=== PATIENT | male | born 1955 | race Caucasian/White ===

== ENCOUNTER 2016-07-26 14:42 | Emergency (ER) | payer OTHER | END 2016-07-26 15:51 | disposition home or self-care (01) | LOC: FER 14:42 | DX: L03.211 Cellulitis of face (principal); T14.8 Other injury of unspecified body region; I10 Essential (primary) hypertension; F17.210 Nicotine dependence, cigarettes, uncomplicated; Z88.5 Allergy status to narcotic agent; W57.XXXA Bitten or stung by nonvenomous insect and other nonvenomous arthropods, initial encounter | CPT/HCPCS: 99283 ==

== ENCOUNTER 2016-07-27 18:59 | Emergency (ER) | payer OTHER ==
[2016-07-27 20:06] LABS: BASOPHIL 0.3 % (0-2); EOSINOPHIL 3.5 % (0-5); HCT 46.6 % (42.0-52.0); HGB 15.9 g/dl (13.2-18.0); LYMPHOCYTE 21.9 % (15-48); MCH 33.5 pg (25.0-31.0); MCHC 34.1 g/dL (32.0-36.0); MCV 98.3 fL (78.0-100.0); MONOCYTE 7.2 % (0-12); MPV 10.1 fL (6.0-9.5); NEUTROPHIL 67.1 % (41-80); PLT 287 K/uL (150-400); RBC 4.74 M/uL (4.70-6.00); RDW 13.1 % (11.5-14.0); WBC 10.5 K/uL (4.0-10.5)
[2016-07-27 20:22] LABS: ALBUMIN 3.7 g/dL (3.4-4.8); BILIRUBIN - TOTAL 0.3 mg/dL (0.1-1.0); CREATININE 0.9 mg/dL (0.7-1.2); GLOBULIN (CALCULATION) 3.2 g/dL (2.2-4.2); POTASSIUM 3.8 mmol/L (3.5-5.1); TOTAL PROTEIN 6.9 g/dL (6.4-8.3)
[2016-07-27 21:26] LABS: BILIRUBIN NEGATIVE (NEGATIVE); BLOOD NEGATIVE Ery/uL (NEGATIVE); CLARITY CLEAR (CLEAR); COLOR YELLOW (YELLOW); GLUCOSE (U) NORMAL (NORMAL); KETONE (U) NEGATIVE (NEGATIVE); LEUKOCYTES NEGATIVE Leu/uL (NEGATIVE); NITRITE NEGATIVE (NEGATIVE); PROTEIN NEGATIVE (NEGATIVE); UROBILINOGEN 0.2 mg/dL (0.2-1.0); pH 6.5 (5.0-9.0)
[2016-07-27 21:36] LABS: AMPHETAMINES POSITIVE (NEGATIVE); BARBITURATES NEGATIVE (NEGATIVE); BENZODIAZEPINES NEGATIVE (NEGATIVE); COCAINE NEGATIVE (NEGATIVE); MARIJUANA (THC) NEGATIVE (NEGATIVE); METHADONE NEGATIVE (NEGATIVE); TRICYCLIC ANTIDEPRESSANT NEGATIVE (NEGATIVE)
== END 2016-07-27 22:32 | disposition home or self-care (01) ==
LOC: FER 18:59
PROVIDERS: Nurse Practitioner Family
DX: L98.9 Disorder of the skin and subcutaneous tissue, unspecified (principal); F15.10 Other stimulant abuse, uncomplicated; I10 Essential (primary) hypertension; F17.210 Nicotine dependence, cigarettes, uncomplicated; Z79.899 Other long term (current) drug therapy
CPT/HCPCS: 36415; 80053; 80305; 81003; 85025; 99283

== ENCOUNTER 2021-08-24 21:35 | Inpatient (IN) | payer OTHER ==
[~2021-08-24] VITALS: Ht 175.3 cm; Wt 94.1 kg
[~2021-08-24 21:35] MED LIST: ATARAX25 MG PO; BACTRIM DS TAB1 EACH PO; KEFLEX250 MG PO; MYCOLOG15 GM TOP
[2021-08-24 22:29] LABS: BASOPHIL 0.5 % (0-2); HGB 13.5 g/dl (13.2-18.0); LYMPHOCYTE 20.4 % (15-48); MCHC 34.6 g/dL (32.0-36.0); MCV 106.8 fL (78.0-100.0); MONOCYTE 6.2 % (0-12); MPV 11.5 fL (6.0-9.5); NEUTROPHIL 69.8 % (41-80); NRBC 0; PLT 160 K/uL (150-400); RBC 3.65 M/uL (4.70-6.00); RDW 13.6 % (11.5-14.0); WBC 14.2 K/uL (4.0-10.5)
[2021-08-24 22:40] LABS: ALBUMIN 2.4 g/dL (3.4-5.0); BILIRUBIN - TOTAL 0.6 mg/dL (0.2-1.0); BUN/CREAT RATIO (CALC) 12.4 RATIO; CREATININE 2.34 mg/dL (0.67-1.17); POTASSIUM 3.4 mmol/L (3.5-5.1); TOTAL PROTEIN 6.4 g/dL (6.4-8.2)
[2021-08-24 22:48] LABS: LACTIC ACID 4.4 mmol/L (0.4-1.9)
[2021-08-25 01:05] LABS: BILIRUBIN 1+ mg/dL (NEGATIVE); BLOOD 3+ Ery/uL (NEGATIVE); GLUCOSE (U) NORMAL (NORMAL); LEUKOCYTES NEGATIVE Leu/uL (NEGATIVE); NITRITE POSITIVE (NEGATIVE); PROTEIN 2+ mg/dL (NEGATIVE); SPECIFIC GRAVITY 1.025 (1.001-1.030); UROBILINOGEN 0.2 mg/dL (0.2-1.0)
[2021-08-25 01:09] LABS: ECSTASY (MDMA) NEGATIVE (NEGATIVE); MARIJUANA (THC) NEGATIVE (NEGATIVE); METHADONE NEGATIVE (NEGATIVE)
[2021-08-25 01:10] LABS: AMPHETAMINES NEGATIVE (NEGATIVE); BARBITURATES NEGATIVE (NEGATIVE); OPIATES POSITIVE (NEGATIVE); OXYCODONE POSITIVE (NEGATIVE)
[2021-08-25 01:12] LABS: CLARITY HAZY (CLEAR); COLOR AMBER (YELLOW)
[2021-08-25 01:20] LABS: URINARY WBC RARE
[2021-08-25 01:22] LABS: BACTERIA 1+
[2021-08-25 02:40] LABS: CORONAVIRUS 2019 SARS-COV-2 NEGATIVE (NEGATIVE); INFLUENZA A NAA NEGATIVE (NEGATIVE)
[2021-08-25] MEDS ORDERED: PROPRANOLOL HCL10 MG PO (03:36)
[2021-08-25] MEDS ORDERED: LISINOPRIL10 MG PO (03:37)
[2021-08-25] MEDS ORDERED: OMEPRAZOLE 20MG20 MG PO (03:37)
[2021-08-25 07:18] LABS: BASOPHIL 0.4 % (0-2); EOSINOPHIL 4.1 % (0-7); HCT 34.6 % (42.0-52.0); HGB 11.9 g/dl (13.2-18.0); LYMPHOCYTE 20.3 % (15-48); MCH 37.2 pg (25.0-31.0); MCHC 34.4 g/dL (32.0-36.0); MCV 108.1 fL (78.0-100.0); MONOCYTE 7.3 % (0-12); MPV 11.6 fL (6.0-9.5); NEUTROPHIL 67.2 % (41-80); PLT 103 K/uL (150-400); RDW 13.6 % (11.5-14.0); WBC 10.5 K/uL (4.0-10.5)
[2021-08-25 07:49] LABS: ALBUMIN 2.1 g/dL (3.4-5.0); ALKALINE PHOSHATASE 46 U/L (46-116); ALT 33 U/L (16-63); AST 31 U/L (15-37); BILIRUBIN - TOTAL 0.6 mg/dL (0.2-1.0); BUN 28 mg/dL (7-18); BUN/CREAT RATIO (CALC) 15.2 RATIO; C-REACTIVE PROTEIN >18.00 mg/dL (<=0.90); CHLORIDE 101 mmol/L (98-107); CHOLESTEROL 116 mg/dL (<200); CO2 (BICARBONATE) 30 mmol/L (21-32); CREATININE 1.84 mg/dL (0.67-1.17); GLOBULIN (CALCULATION) 3.5 g/dL; GLUCOSE 96 mg/dL (74-106); HDL 54 mg/dL (40-60); LDH 166 U/L (85-227); LDL - DIRECT 45 mg/dL (<100); MAGNESIUM 0.7 mg/dL (1.8-2.4); PHOSPHORUS 4.1 mg/dL (2.6-4.7); POTASSIUM 3.9 mmol/L (3.5-5.1); TOTAL PROTEIN 5.6 g/dL (6.4-8.2); TRIGLYCERIDES 64 mg/dL (<150)
[2021-08-25 07:53] LABS: EOSINOPHIL(M) 6 % (0-7); LYMPHOCYTE(M) 17 % (15-48); MONOCYTE(M) 4 % (0-12); NEUTROPHILS(M) 73 % (41-80); NRBC 0; TOTAL CELL COUNT 100
[2021-08-25 07:54] LABS: CKMB 1.3 ng/mL (0.0-3.6); PLATELET ESTIMATE NORMAL; PLATELET MORPHOLOGY NORMAL
--- NOTE | 2021-08-25 10:08 | NUR ---
DR. ORTIZ WAS CONTACTED BUT IS UNABLE TO COME SEE PATIENT IN HOSPITAL. WILL TRY TO CONTACT US WITH ANOTHER LOCAL ORAL SURGEON. DR. MOLINA IS CONTEMPLATING TRANSFER TO [facility] FOR THE ABCESS WELL. WILL CONTINUE TO FOLLOW.
[2021-08-25 11:46] LABS: CREATININE 1.47 mg/dL (0.67-1.17); POTASSIUM 3.9 mmol/L (3.5-5.1)
[2021-08-26 07:10] LABS: BASOPHIL 0.2 % (0-2); EOSINOPHIL 2.4 % (0-7); HCT 31.1 % (42.0-52.0); HGB 10.5 g/dl (13.2-18.0); LYMPHOCYTE 13.2 % (15-48); MCH 36.6 pg (25.0-31.0); MCHC 33.8 g/dL (32.0-36.0); MCV 108.4 fL (78.0-100.0); MONOCYTE 7.6 % (0-12); MPV 11.7 fL (6.0-9.5); NEUTROPHIL 75.6 % (41-80); NRBC 0; PLT 102 K/uL (150-400); RBC 2.87 M/uL (4.70-6.00); RDW 13.3 % (11.5-14.0); RETICULOCYTE COUNT 2.3 % (1.0-2.0); WBC 8.7 K/uL (4.0-10.5)
[2021-08-26 07:26] LABS: IRON % SATURATION 9.9 %SAT (20-50)
[2021-08-26 08:06] LABS: BUN 20 mg/dL (7-18); BUN/CREAT RATIO (CALC) 19.6 RATIO; C-REACTIVE PROTEIN >18.00 mg/dL (<=0.90); CHLORIDE 101 mmol/L (98-107); CO2 (BICARBONATE) 26 mmol/L (21-32); CREATININE 1.02 mg/dL (0.67-1.17); FOLIC ACID (SERUM) 22.1 ng/mL (8.6-58.9); GLUCOSE 137 mg/dL (74-106); MAGNESIUM 1.8 mg/dL (1.8-2.4); PHOSPHORUS 2.5 mg/dL (2.6-4.7); POTASSIUM 3.4 mmol/L (3.5-5.1)
[2021-08-27] MEDS ORDERED: POLY-IRON150 MG PO (11:19)
[2021-08-27] MEDS ORDERED: AMOX TR-K CLV1 EAC4 PO (11:19)
[2021-08-27] MEDS ORDERED: TOPROL XL 25MG25 MG PO (14:57)
--- NOTE | 2021-08-28 16:33 | NUR ---
PATIENT CAME TODAY TO HAVE HOTLER MONITOR PLACED FOR 3 WEEKS FOR FOLLOWUP WITH CARDIOLOGY. DISCUSSED STRESS TEST INFORMATION WITH HIM WELL. PATIENT STATED HE UNDERSTOOD AND HAD NO QUESTIONS. TOOK PAPERWORK AND WAS ESCORTED TO RT FOR PLACEMENT BY ANNE DOBSON. PATIENT HAD CONTACT INFORMATION FOR CARDIOLOGY WELL.
== END 2021-08-27 11:30 | disposition home or self-care (01) | DRG 682 ==
LOC: FER 21:35 → FTCU 08-25 01:06
PROVIDERS: Emergency Medicine; Nurse Practitioner; ADMIT Internal Medicine
PROC: B24BZZZ Ultrasonography of Heart with Aorta (ICD-10-PCS; principal; 2021-08-25)
DX: N17.9 Acute kidney failure, unspecified (principal); R65.11 Systemic inflammatory response syndrome (SIRS) of non-infectious origin with acute organ dysfunction; E87.2 Acidosis; E44.1 Mild protein-calorie malnutrition; E86.1 Hypovolemia; Z20.822 Contact with and (suspected) exposure to COVID-19; E86.0 Dehydration; I25.10 Atherosclerotic heart disease of native coronary artery without angina pectoris; E53.8 Deficiency of other specified B group vitamins; E83.42 Hypomagnesemia; F10.10 Alcohol abuse, uncomplicated; R00.8 Other abnormalities of heart beat; I48.0 Paroxysmal atrial fibrillation; I44.7 Left bundle-branch block, unspecified; I11.0 Hypertensive heart disease with heart failure; I50.9 Heart failure, unspecified; F17.210 Nicotine dependence, cigarettes, uncomplicated; Z79.01 Long term (current) use of anticoagulants; Z90.49 Acquired absence of other specified parts of digestive tract; Z98.890 Other specified postprocedural states; Z79.899 Other long term (current) drug therapy; Z88.5 Allergy status to narcotic agent; Z28.310 Unvaccinated for COVID-19; Z80.1 Family history of malignant neoplasm of trachea, bronchus and lung
CPT/HCPCS: 36415; 70487; 71045; 71046; 80048; 80053; 80061; 80305; 81001; 82553; 82607; 82746; 83036; 83540; 83550; 83605; 83615; 83735; 83880; 84100; 84145; 84484; 85025; 86140; 87040; 87088; 93005; 94010; 94640; 94762; J0692; J1650; J2543; J2916; J3420; J3475; J7030; Q9967; U0002